=== PATIENT | female | born 1990 | race Caucasian/White ===

== ENCOUNTER 2017-12-12 14:03 | Emergency (ER) | payer MEDICAID ==
[~2017-12-12] VITALS: Ht 162.6 cm; Wt 140.0 kg
[2017-12-12 18:14] LABS: URINE HCG NEGATIVE (NEG)
[2017-12-12] MEDS ORDERED: ibuprofen tablet 400 MG TABLET PO ONE (19:35)
[2017-12-12] MEDS ORDERED: acetaminophen 325mg tablet PO ONE (19:35)
[2017-12-12] MEDS ORDERED: IBUP-1986 PO (20:28)
[2017-12-12] MEDS ORDERED: AMOX-580 PO (20:28)
[2017-12-12] MEDS ORDERED: ONDA4TAB12 PO (20:28)
[2017-12-12] MEDS ORDERED: HYDR-3965 PO (20:28)
[2017-12-12 20:38] VITALS: BP 132/78
== END 2017-12-12 20:38 | disposition home or self-care (01) ==
LOC: ER 14:04
DX: S02.31XA Fracture of orbital floor, right side, initial encounter for closed fracture (principal); S02.2XXA Fracture of nasal bones, initial encounter for closed fracture; B30.3 Acute epidemic hemorrhagic conjunctivitis (enteroviral); W51.XXXA Accidental striking against or bumped into by another person, initial encounter; Y93.89 Activity, other specified; Y92.89 Other specified places as the place of occurrence of the external cause; Y99.8 Other external cause status
CPT/HCPCS: 70140; 70486; 81025; 99285

== ENCOUNTER 2020-08-21 11:08 | Emergency (ER) | payer MEDICAID ==
[~2020-08-21] VITALS: Ht 162.6 cm; Wt 157.0 kg
[~2020-08-21 11:08] MED LIST: IBUP-1986 PO; ONDA4TAB12 PO
[2020-08-21 12:54] LABS: BASOPHILS # (AUTO) 0.1 X10'3 (0-0.2); BASOPHILS % (AUTO) 0.5 % (0-1); EOSINOPHILS # (AUTO) 0.2 X10'3 (0-0.9); HEMATOCRIT 43.8 % (35.0-45.0); HEMOGLOBIN 14.9 g/dl (12.0-16.0); LYMPHOCYTES # (AUTO) 2.4 X10'3 (1.1-4.8); MEAN CORPUSCULAR HEMOGLOBIN 31.5 PG (27.0-31.0); MEAN CORPUSCULAR HGB CONC 34.1 g/dL (33.0-36.5); MEAN CORPUSCULAR VOLUME 92.5 FL (78-98); MEAN PLATELET VOLUME 8.9 FL (7.4-10.4); MONOCYTES # (AUTO) 0.7 X10'3 (0-0.9); MONOCYTES % (AUTO) 7.3 % (2-12); NEUTROPHILS # (AUTO) 6.7 X10'3 (1.8-7.7); NEUTROPHILS % (AUTO) 66.2 % (42-75); PLATELET COUNT 250 X10'3 (140-440); RED BLOOD COUNT 4.73 X10'6 (4.20-5.60); RED CELL DISTRIBUTION WIDTH 12.4 % (11.5-14.5); WHITE BLOOD COUNT 10.2 X10'3 (4.5-11.0)
[2020-08-21 13:07] LABS: ALANINE AMINOTRANSFERASE 34 U/L (12-78); ALBUMIN 3.4 G/DL (3.4-5.0); ALBUMIN/GLOBULIN RATIO 0.9 (1.1-1.5); ALKALINE PHOSPHATASE 73 IU/L (46-116); ANION GAP 5 (8-16); ASPARTATE AMINO TRANSFERASE 12 U/L (10-37); BILIRUBIN,TOTAL 0.6 MG/DL (0.1-1.0); BLOOD UREA NITROGEN 8 MG/DL (7-18); CALCIUM 8.7 MG/DL (8.5-10.1); CHLORIDE 105 MMOL/L (99-107); CREATININE 0.57 MG/DL (0.40-0.90); GLUCOSE 107 MG/DL (70-104); SODIUM 137 MMOL/L (135-145); TOTAL CARBON DIOXIDE 26.7 MMOL/L (24-32); TOTAL PROTEIN 7.3 G/DL (6.4-8.2); eGFR > 90 ML/MIN
[2020-08-21 13:30] LABS: LIPASE 71 U/L (73-393)
[2020-08-21 13:34] LABS: BETA HCG,QUANTITATIVE 16465 mIU/ml
[2020-08-21 13:49] VITALS: BP 153/92
[2020-08-21 14:21] LABS: URINE HCG POSITIVE (NEG)
[2020-08-21 14:22] LABS: CLARITY,URINE TURBID (Clear); COLOR,URINE YELLOW (Yellow); GLUCOSE, URINE NEGATIVE (Neg); KETONES,URINE NEGATIVE (Neg); LEUKOCYTE ESTERASE ,URINE MODERATE (Neg); NITRITES, URINE NEGATIVE (Neg); OCCULT BLOOD,URINE NEGATIVE (Neg); PROTEIN,URINE NEGATIVE (Neg); UROBILINOGEN,URINE 0.2 E.U/dL (0.2-1.0)
[2020-08-21 14:25] LABS: UA COLLECTION TYPE CLN CATCH MIDSTREAM
[2020-08-21 14:33] LABS: MUCUS STRANDS MANY /LPF (Neg); SQUAMOUS EPITHELIAL CELL,UR MANY /LPF (FEW)
[2020-08-21 14:36] LABS: BACTERIA,URINE 4+ /HPF (Neg); RBC,URINE 0-2 /HPF (0-2)
--- NOTE | 2020-08-21 14:52 | NUR ---
US TECH AT BEDSIDE.
[2020-08-21] MEDS ORDERED: CEPH250T PO (15:22)
--- NOTE | 2020-08-21 16:16 | NUR ---
Patient was found in lobby. Reviewed discharged instructions and medication. Patient verbalizes understanding. Discharged home in stable condition.
== END 2020-08-21 15:51 | disposition home or self-care (01) ==
LOC: ER 11:09
DX: O23.41 Unspecified infection of urinary tract in pregnancy, first trimester (principal); N93.9 Abnormal uterine and vaginal bleeding, unspecified; R10.30 Lower abdominal pain, unspecified; Z3A.01 Less than 8 weeks gestation of pregnancy; Z88.8 Allergy status to other drugs, medicaments and biological substances; Z79.1 Long term (current) use of non-steroidal anti-inflammatories (NSAID); Z79.2 Long term (current) use of antibiotics
CPT/HCPCS: 36415; 76801; 76817; 80053; 81001; 81025; 83690; 84702; 85025; 93976; 99284

== ENCOUNTER 2024-09-01 17:45 | Emergency (ER) | payer MEDICAID ==
[~2024-09-01] VITALS: Ht 162.6 cm; Wt 160.2 kg
[~2024-09-01 17:45] MED LIST changes: +ONDA-243 PO; -ONDA4TAB12 PO
[2024-09-01 18:17] LABS: BASOPHILS # (AUTO) 0.1 X10'3 (0-0.2); BASOPHILS % (AUTO) 0.6 % (0-1); EOSINOPHILS # (AUTO) 0.3 X10'3 (0-0.9); EOSINOPHILS % (AUTO) 2.8 % (0-6); HEMATOCRIT 43.4 % (35.0-45.0); HEMOGLOBIN 15.1 g/dl (12.0-16.0); LYMPHOCYTES # (AUTO) 2.7 X10'3 (1.1-4.8); LYMPHOCYTES % (AUTO) 24.6 % (21-51); MEAN CORPUSCULAR HEMOGLOBIN 31.3 PG (27.0-31.0); MEAN CORPUSCULAR HGB CONC 34.8 g/dL (33.0-36.5); MONOCYTES # (AUTO) 0.6 X10'3 (0-0.9); MONOCYTES % (AUTO) 5.8 % (2-12); NEUTROPHILS # (AUTO) 7.2 X10'3 (1.8-7.7); NEUTROPHILS % (AUTO) 66.2 % (42-75); PLATELET COUNT 299 X10'3 (140-440); RED BLOOD COUNT 4.83 X10'6 (4.20-5.60); RED CELL DISTRIBUTION WIDTH 12.8 % (11.5-14.5); WHITE BLOOD COUNT 10.8 X10'3 (4.5-11.0)
[2024-09-01 18:34] LABS: ALANINE AMINOTRANSFERASE 31 U/L (12-78); ALBUMIN 3.2 G/DL (3.4-5.0); ALBUMIN/GLOBULIN RATIO 0.8 (1.1-1.5); ALKALINE PHOSPHATASE 76 IU/L (46-116); ANION GAP 7 (8-16); BILIRUBIN,TOTAL 0.9 MG/DL (0.1-1.0); BLOOD UREA NITROGEN 6 MG/DL (7-18); BUN/CREATININE RATIO 9.1 (10.0-20.0); CALCIUM 8.6 MG/DL (8.5-10.1); CHLORIDE 107 MMOL/L (99-107); CREATININE 0.66 MG/DL (0.40-0.90); GLUCOSE 104 MG/DL (70-104); SODIUM 141 MMOL/L (135-145); TOTAL CARBON DIOXIDE 26.7 MMOL/L (24-32); TOTAL PROTEIN 7.3 G/DL (6.4-8.2); eCRCL 106 ML/MIN; eGFR > 90 ML/MIN
[2024-09-01 18:35] LABS: ASPARTATE AMINO TRANSFERASE 26 U/L (10-37); POTASSIUM 4.1 MMOL/L (3.5-5.1)
[2024-09-01 18:41] LABS: PRO BRAIN NATRIURETIC PEPTIDE 37 PG/ML (0-125)
[2024-09-01 19:29] VITALS: BP 144/88; PULSE 84; RESP 20; TEMP 98.1; O2SAT 97
== END 2024-09-01 19:32 | disposition home or self-care (01) ==
LOC: ER 17:45
DX: R00.2 Palpitations (principal); Z88.8 Allergy status to other drugs, medicaments and biological substances; Z79.1 Long term (current) use of non-steroidal anti-inflammatories (NSAID)
CPT/HCPCS: 36415; 80053; 83880; 84484; 85025; 93005; 99284

== ENCOUNTER 2025-06-05 09:56 | Emergency (ER) | payer MEDICAID ==
[~2025-06-05] VITALS: Ht 162.6 cm; Wt 160.3 kg
[2025-06-05 10:14] VITALS: TEMP 98
--- NOTE | 2025-06-05 10:19 | Physician Documentation ---
History of Present Illness ~ Chief Complaint: Back Pain Stated Complaint: BACK PAIN Time Seen by MD: 11:51 OK to notify your PCP?: Yes Primary Medical Doctor: KIMBERLY DUARTE IN Source: patient Mode of Arrival: POV Exam Limitations: no limitations HPI 34-year-old female presents with mid back pain worse on the left side for the past 4 days. She denies any injury and states she woke up like this. She thinks it may be from carrying her toddler around. She has tried Tylenol/ibuprofen, ice and heat. She denies any chest pain. She states that this pain does radiate up to her left scapula and down to the elbow. Medication Reconciliation Allergies: Coded Allergies: ondansetron (Verified Allergy, Unknown, 06/05/25) Scheduled Ibuprofen (Ibuprofen), 1 TAB PO Q8H Scheduled PRN ONDANSETRON ODT 4mg tablet (Ondansetron Odt), 1 TABLET PO Q6H PRN for nausea/vomiting Past Medical History Past Medical History: No Pertinent History Past Surgical History: noncontributory Alcohol Use: Occasionally Lives In: Home Occupation: employed Review of Systems All Other Systems at this time: Reviewed and Negative Physical Exam Physical Exam Vital Signs: RN Vital Signs have been reviewed: Yes, Temperature: 98.0, Source: Temporal, Heart Rate: 77, Respiratory Rate: 16, BP: 142/98, Pulse Oximetry: 96, Weight: 160.300 Oxygen Flow Rate: 0 Pulse Oximetry Reflects: adequate oxygenation Physical Exam General: Alert, no apparent distress. HEENT: PERRL, EOMI, no injection, moist mucous membranes. Neck: Full range of motion. Respiratory: Lungs clear, no respiratory distress. Chest: No accessory muscle use. Cardiovascular: Regular rate and rhythm, no murmurs. Gastrointestinal: Soft, nontender, nondistended. Bowels sounds present. Back: No CVA tenderness. No midline tenderness. Tenderness to palpation along left thoracic and lumbar muscles. Extremities: Normal range of motion, no deformity. Good CSM, good sensation, good pulses in both arms. Neurologic: Oriented x4. Psychiatric: Normal mood and affect. Skin: Normal color, warm and dry. No edema, no ecchymosis. Progress Results/Orders Reviewed/noted all lab results: Yes Results/Orders Vital Signs 06/05/25 10:14 Temp 98.0 Pulse 77 Resp 16 B/P (MAP) 142/98 Pulse Ox 96 O2 Flow Rate 0 EKG/XRAY/CT/US/VASC/MRI EKG : Additional Comment Electrocardiogram: as interpreted by me; normal sinus rhythm, no axis deviation, no acute ischemia, normal intervals, no pre-excitation pattern. Rate: 76 Medical Decision Making Additional info obtained from: old records Findings She has been having mid back pain for the past 4 days. There was no associated injury she woke up like this. She states that she does carry around her toddler and thinks it maybe from that. She has not have any cardiac history. Her EKG was normal. She on examination has some tenderness along the muscles in the thoracic and lumbar region on the left side. She does not have any CVA tenderness though. She denies any urinary symptoms. She has been trying Tylenol and ibuprofen with some relief although she ran out of her ibuprofen and now is only taking Tylenol. I gave her a Toradol injection while in the department as well as Flexeril. Flexeril prescription was then sent to her pharmacy. She was given follow up instructions as well as return instructions. Differential Dx:Considerations: Include: AAA, Aortic dissection, Pyelonephritis, Urinary obstruction, Urolithiasis Differential Diagnosis NV, CVA. Departure Disposition: 01 HOME / SELF CARE / HOMELESS Impression: Primary Impression: Back problem Condition: Stable Discharge Instructions: Acute Back Pain, Adult Additional Instructions: Follow up with her primary care provider and return back here for any new or worsening symptoms. Referrals: NO PRIMARY CARE PROVIDER (PCP) Prescriptions Naproxen (Naproxen) 500 Mg Tablet 1 TAB PO Q12H, #20 TAB Prov: KORINA MATA 06/05/25 Cyclobenzaprine* (Cyclobenzaprine*) 10 Mg Tablet 1 TAB PO Q8H for muscle spasms for 10 Days, #30 TAB 0 Refills Prov: KORINA MATA 06/05/25 Education Educated: Patient Educated regarding: diagnosis, treatment, prognosis, need for follow up Additional Comment Medical Screen Exam This patient recieved a medical screening examination. After reviewing the individual's medical complaints with presenting symptoms and performing an appropriate physical examination, it was determined that no immediate life- threatening emergency medical condition is present. This individual is also not a women having contractions. Signature Scribe Signature: . Attestation: Scribed for Korina Mata Master Control Operator by Korina Kelly NP . 06/05/25 12:07 Parts of this note were created using [employer] voice recognition software program. While efforts were made to correct any mistakes made by this voice recognition software program, nonsensical phrases may remain in this note. In addition, there may be errors and syntax, grammar, content and spelling. KORINA MATA BOBJ DEVELOPER Jun 05, 2025 10:19
--- NOTE | 2025-06-05 10:35 | ELECTROCARDIOGRAPH REPORT ---
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
[2025-06-05] MEDS ORDERED: CYCL-1 PO (12:03)
[2025-06-05] MEDS ORDERED: NAPR-56 PO (12:03)
[2025-06-05] MEDS: ketorolac trometh 15mg/ml vial 15 MG/ML ML IM ONE (12:10)
[2025-06-05 12:16] VITALS: BP 136/90; PULSE 69; RESP 16; O2SAT 95
== END 2025-06-05 12:18 | disposition home or self-care (01) ==
LOC: ER 09:56
DX: M54.9 Dorsalgia, unspecified (principal); Z79.899 Other long term (current) drug therapy; Z72.89 Other problems related to lifestyle
CPT/HCPCS: 93005; 96372; 99283; J1885